=== PATIENT | male | born 1950 | race Caucasian/White ===

== ENCOUNTER 2018-01-12 05:55 | Day surgery (SDC) | payer OTHER ==
[~2018-01-12 05:55] MED LIST: AMARYL PO; JANUMET 50-5001 EACH PO; TAMS0.4C PO
[2018-01-12] MEDS ORDERED: FLAGYL500MG PO (10:59)
[2018-01-12] MEDS ORDERED: PERCOCET 5-3251 EACH PO (10:59)
[2018-01-12] MEDS ORDERED: CIPRO500 MG PO (10:59)
[2018-01-12] MEDS ORDERED: RECTICARE30 GM TOP (10:59)
== END 2018-01-12 14:30 | disposition home or self-care (01) ==
LOC: CIR.AMB 05:55
DX: D12.8 Benign neoplasm of rectum (principal)

== ENCOUNTER 2018-07-07 06:05 | Day surgery (SDC) | payer OTHER ==
[~2018-07-07 06:05] MED LIST changes: +CIPRO500 MG PO; +FLAGYL500MG PO; +PERCOCET 5-3251 EACH PO; +RECTICARE30 GM TOP
== END 2018-07-07 11:30 | disposition home or self-care (01) ==
LOC: AMB-ENDOS 06:05
DX: D12.4 Benign neoplasm of descending colon (principal); K62.89 Other specified diseases of anus and rectum; K52.89 Other specified noninfective gastroenteritis and colitis

== ENCOUNTER 2019-08-17 06:30 | Day surgery (SDC) | payer OTHER | END 2019-08-17 11:20 | disposition home or self-care (01) | LOC: AMB-ENDOS 06:30 | DX: D12.4 Benign neoplasm of descending colon (principal); K62.89 Other specified diseases of anus and rectum ==